=== PATIENT | female | born 2000 | race Two or more races ===

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

== ENCOUNTER 2019-05-17 15:50 | Outpatient (CLI) | payer SELFPAY ==
--- NOTE | 2019-05-18 07:31 | Ultrasound Report ---
Reason: POSITIVE TEST Procedure Date: 05/17/2019 Accession Number: [id number] / [id number] Procedure: US - OB First Trimester CPT Code: Final Report FULL RESULT: EXAM: FIRST TRIMESTER OBSTETRIC ULTRASOUND (Less than 11 weeks) EXAM DATE: 05/17/2019 04:23 PM. CLINICAL HISTORY: POSITIVE TEST. LMP: 03/24/2019 (unsure). COMPARISONS: None. TECHNIQUE: Transabdominal and transvaginal ultrasound examination with static image documentation. CLINICAL DATES: EGA 7 weeks 5 days with LAVELLE 12/29/2019 based on reported LMP (although unsure). ASSESSMENT: Gestational Sac: Single intrauterine. Mean gestational sac diameter: 28 mm = 7 weeks 6 days. Embryo: CRL (crown-rump length) 15 mm = 7 weeks 6 days. Cardiac activity: Average 170 beats per minute. Yolk sac: 5.9 mm. Amniotic fluid: Not accurately assessed at this gestational age. Early placenta: Not visible at this gestational age. Other: No perigestational fluid collection demonstrated. MATERNAL STRUCTURES: Uterus: Anteverted. Single intrauterine gestation as above.. Cervix: Closed. Right Ovary/Adnexa: The ovary measures 3.4 x 1.5 x 1.9 cm, volume 5 cc. Exophytic ovarian versus paraovarian cyst measuring 1.3 x 1.4 x 1.4 cm. No evidence of torsion.. Left Ovary/Adnexa: The ovary measures 3.9 x 2.5 x 4.2 cm, volume 21.5 cc. Corpus luteum cyst is present measuring 1.8 x 2.0 x 2.0 cm. No evidence of torsion. Free Fluid: None. Other: None. IMPRESSION: Single viable intrauterine at EGA 7 weeks 6 days with LAVELLE 12/28/2019 based on crown-rump length, which is concordant with clinical dates. RADIA
== END 2019-05-17 15:51 | disposition home or self-care (01) ==
LOC: DI 15:50
PROVIDERS: ATTEND Nurse Practitioner Obstetrics & Gynecology
DX: Z32.01 Encounter for pregnancy test, result positive (principal)
CPT/HCPCS: 76801; 76817

== ENCOUNTER 2019-05-28 08:00 | Outpatient (CLI) | payer SELFPAY ==
[2019-05-28 15:25] LABS: MUDS CUTOFF CONCENTRATIONS CUTOFF CONC BELOW:
[2019-05-28 15:46] LABS: AMPHETAMINE SCREEN,URINE NEGATIVE (NEGATIVE); BENZODIAZEPINES SCREEN, URINE NEGATIVE (NEGATIVE); COCAINE SCREEN URINE NEGATIVE (NEGATIVE); METHADONE SCREEN, URINE NEGATIVE (NEGATIVE); METHAMPHETAMINES SCREEN, URINE NEGATIVE (NEGATIVE); OPIATE SCREEN, URINE NEGATIVE (NEGATIVE); OXYCODONE SCREEN, URINE NEGATIVE (NEGATIVE); PROPOXYPHENE SCREEN, URINE NEGATIVE (NEGATIVE); TRICYCLIC ANTIDEPRESSANT,URINE NEGATIVE (NEGATIVE)
[2019-05-28 20:57] LABS: TRICHOMONAS VAGINALIS DNA NEGATIVE (NEGATIVE)
== END 2019-05-28 23:59 | disposition home or self-care (01) ==
LOC: LAB.R 08:00
PROVIDERS: ATTEND Nurse Practitioner Obstetrics & Gynecology
DX: Z36.89 Encounter for other specified antenatal screening (principal); Z11.3 Encounter for screening for infections with a predominantly sexual mode of transmission
CPT/HCPCS: 80306; 87491; 87591; 87661

== ENCOUNTER 2019-05-28 10:51 | Outpatient (CLI) | payer SELFPAY ==
[2019-05-28 11:16] LABS: BASOPHILS % (AUTO) 0.4 %; EOSINOPHILS # (AUTO) 0.2 10^3/uL (0.0-0.7); EOSINOPHILS % (AUTO) 2.3 %; HGB - HEMOGLOBIN 12.1 g/dL (12.0-16.0); LYMPHOCYTES % (AUTO) 25.6 %; MEAN CORPUSCULAR HEMOGLOBIN 28.6 pg (27.0-31.0); MEAN CORPUSCULAR HGB CONC 33.2 g/dL (32.0-36.0); MEAN CORPUSCULAR VOLUME 86.1 fL (81.0-99.0); MEAN PLATELET VOLUME 10.7 fL (7.9-10.8); MONOCYTES # (AUTO) 0.5 10^3/uL (0.0-1.0); NEUTROPHILS % (AUTO) 65.2 %; PLT - PLATELET COUNT 226 10^3/uL (130-450); RED BLOOD COUNT 4.23 10^6/uL (4.20-5.40); RED CELL DISTRIBUTION WIDTH 14.9 % (12.0-15.0); WHITE BLOOD COUNT 7.7 x10^3/uL (4.8-10.8)
[2019-05-29 12:17] LABS: HEPATITIS B SURFACE ANTIGEN NON-REACTIVE (NON-REACTIVE)
[2019-05-29 12:27] LABS: HEPATITIS C ANTIBODY NON-REACTIVE (NON-REACTIVE)
[2019-05-29 12:42] LABS: HIV AG/AB 4TH GEN NON-REACTIVE (NON-REACTIVE)
== END 2019-05-28 10:52 | disposition home or self-care (01) ==
LOC: LAB 10:51
PROVIDERS: ATTEND Nurse Practitioner Obstetrics & Gynecology
DX: Z36.89 Encounter for other specified antenatal screening (principal)
CPT/HCPCS: 36415; 81599; 85025; 86592; 86762; 86803; 86850; 86900; 86901; 87340; 87389

== ENCOUNTER 2019-07-29 11:56 | Outpatient (CLI) | payer MEDICAID ==
--- NOTE | 2019-07-30 14:54 | Ultrasound Report ---
Reason: SCREENING Procedure Date: 07/29/2019 Accession Number: [id number] / [id number] Procedure: US - OB Detailed Eval CPT Code: Final Report FULL RESULT: EXAM: COMPLETE OBSTETRICAL ULTRASOUND EXAM DATE: 07/29/2019 01:34 PM. CLINICAL HISTORY: anatomic survey. COMPARISON: 05/17/2019. TECHNIQUE: Real-time sonographic evaluation of the fetus performed by the rn patient care. Multiple provider relations representative static images were saved for review. Additional transvaginal imaging to more accurately evaluate cervical length/placental position/etc. DATING: Established EGA 18 weeks 1 day with LAVELLE 12/29/2019 based on physician stated. EGA 18 weeks 2 days with LAVELLE 12/28/2019 based on prior ultrasound . EGA 18 weeks 2 days with LAVELLE 12/28/2019 based on the current ultrasound. GENERAL EVALUATION Cody . Cardiac activity: 144 bpm. movement: Visualized. Presentation: Cephalic. Placenta: Anterior position. No evidence for previa. Umbilical cord: 3 vessel cord. Central placental cord origin. Amniotic fluid: 13.7 cm MVP 3.7 cm. BIOMETRY Bi-Parietal Diameter (BPD): 4.1 cm, 18 weeks 3 days Head Circumference (HC): 15.22 cm, 18 weeks 2 days Abdominal Circumference (AC): 12.53 cm, 18 weeks 1 day Femur Length (FL): 2.69 cm, 18 weeks 1 day Estimated Weight: 228 g, 47.6 percentile for 18 weeks 1 day. ANATOMY The intracranial structures, profile, face/nose/lips, spine, 4 chamber heart and outflow tracts, stomach, abdominal wall and cord insertion, diaphragm, kidneys, bladder, and extremities were visualized and demonstrate no abnormality. MATERNAL STRUCTURES Uterus: Unremarkable. Cervix: Long and closed. Transabdominal length 4.5 cm. Right ovary/adnexa: Unremarkable. Left ovary/adnexa: Unremarkable. Free fluid: None. IMPRESSION: 1. Cody live intrauterine with gestational age 18 weeks 1 day based on physician stated. 2. Estimated weight is within expected limits for assigned dating. 3. Normal anatomic survey. No anatomic abnormalities are detected at this time. RADIA
== END 2019-07-29 11:57 | disposition home or self-care (01) ==
LOC: DI 11:56
PROVIDERS: ATTEND Nurse Practitioner Obstetrics & Gynecology
DX: Z34.92 Encounter for supervision of normal pregnancy, unspecified, second trimester (principal); Z36.89 Encounter for other specified antenatal screening
CPT/HCPCS: 76811

== ENCOUNTER 2019-10-02 09:09 | Outpatient (CLI) | payer MEDICAID ==
[2019-10-02 10:41] LABS: HGB - HEMOGLOBIN 11.2 g/dL (12.0-16.0); MEAN CORPUSCULAR HEMOGLOBIN 29.2 pg (27.0-31.0); MEAN CORPUSCULAR HGB CONC 33.3 g/dL (32.0-36.0); MEAN CORPUSCULAR VOLUME 87.5 fL (81.0-99.0); MEAN PLATELET VOLUME 10.9 fL (7.9-10.8); RED BLOOD COUNT 3.84 10^6/uL (4.20-5.40); RED CELL DISTRIBUTION WIDTH 12.5 % (12.0-15.0); WHITE BLOOD COUNT 8.2 x10^3/uL (4.8-10.8)
== END 2019-10-02 09:10 | disposition home or self-care (01) ==
LOC: LAB 09:09
PROVIDERS: ATTEND Advanced Practice Midwife
DX: Z34.90 Encounter for supervision of normal pregnancy, unspecified, unspecified trimester (principal)
CPT/HCPCS: 36415; 82950; 84443; 85027

== ENCOUNTER 2019-12-05 07:00 | Outpatient (CLI) | payer MEDICAID ==
[2019-12-05 20:02] LABS: TRICHOMONAS VAGINALIS DNA NEGATIVE (NEGATIVE)
[2019-12-05 20:50] LABS: CANDIDA GROUP DNA POSITIVE (NEGATIVE); CANDIDA KRUSEI DNA NEGATIVE (NEGATIVE); TRICHOMONAS VAGINALIS DNA NEGATIVE (NEGATIVE)
== END 2019-12-05 23:59 | disposition home or self-care (01) ==
LOC: LAB.R 07:00
PROVIDERS: ATTEND Advanced Practice Midwife
DX: Z36.85 Encounter for antenatal screening for Streptococcus B (principal); Z34.90 Encounter for supervision of normal pregnancy, unspecified, unspecified trimester; Z11.3 Encounter for screening for infections with a predominantly sexual mode of transmission; O23.599 Infection of other part of genital tract in pregnancy, unspecified trimester
CPT/HCPCS: 87491; 87591; 87661; 87797; 87801

== ENCOUNTER 2019-12-28 14:24 | Inpatient (IN) | payer MEDICAID ==
[2019-12-28] MEDS ORDERED: METHYLERGONOVINE 0.2 MG/ML VIAL IM PRN (15:01)
[2019-12-28] MEDS ORDERED: fentaNYL 100 MCG/2 ML VIAL IVP PRN (15:01)
[2019-12-28] MEDS ORDERED: LIDOCAINE-MPF 1% 30 ML VIAL ID PRN ×2 (15:01→16:54)
[2019-12-28] MEDS ORDERED: SODIUM CHLORIDE FLUSH 0.9% 10 ML SYRINGE IVP PRN ×2 (15:01→16:54)
[2019-12-28] MEDS ORDERED: OXYTOCIN/SODIUM CHLORIDE 500 ML IV PRN ×3 (15:01→16:54)
[2019-12-28] MEDS ORDERED: miSOPROStoL 200 MCG TABLET BC PRN ×2 (15:01→16:54)
[2019-12-28] MEDS ORDERED: METOCLOPRAMIDE 10 MG/2 ML VIAL IVP PRN ×2 (15:01→21:47)
[2019-12-28] MEDS ORDERED: TRANEXAMIC ACID 1,000 MG in SODIUM CHLORIDE 0.9% 100ML 100 ML IV PRN ×2 (15:01→16:54)
[2019-12-28] MEDS ORDERED: ONDANSETRON 4 MG/2 ML VIAL IVP PRN ×2 (15:01→21:47)
[2019-12-28] MEDS ORDERED: OXYTOCIN 10 UNIT/ML VIAL IM PRN ×2 (15:01→16:54)
[2019-12-28] MEDS ORDERED: CARBOPROST TROMETHAMINE 250 MCG/ML AMP IM PRN ×2 (15:01→16:54)
[2019-12-28] MEDS ORDERED: NIFEdipine 10 MG CAPSULE PO PRN (15:09)
[2019-12-28] MEDS ORDERED: AMPICILLIN 2 GM in SODIUM CHLORIDE 0.9% MINIBAG 100 ML IV ONE (15:30)
[2019-12-28] MEDS: MAGNESIUM SULFATE 2 GRAM 2 GM/50 ML BAG IV SCH ×2 (15:32→15:47)
[2019-12-28 15:56] LABS: CREATININE,URINE 79.7 mg/dL; PROTEIN/CREATININE RATIO,URINE 0.3 (<=0.2)
[2019-12-28] MEDS: MAGNESIUM SULFATE IN WATER 20 GM/500 ML IV.SOLN IV SCH (15:56)
[2019-12-28 15:57] LABS: BASOPHILS % (AUTO) 0.4 %; EOSINOPHILS % (AUTO) 0.4 %; HGB - HEMOGLOBIN 11.7 g/dL (12.0-16.0); LYMPHOCYTES # (AUTO) 1.6 10^3/uL (1.5-3.5); LYMPHOCYTES % (AUTO) 27.7 %; MEAN CORPUSCULAR HEMOGLOBIN 25.4 pg (27.0-31.0); MEAN CORPUSCULAR HGB CONC 32.1 g/dL (32.0-36.0); MONOCYTES # (AUTO) 0.4 10^3/uL (0.0-1.0); MONOCYTES % (AUTO) 6.6 %; NEUTROPHILS # (AUTO) 3.6 10^3/uL (1.5-6.6); NEUTROPHILS % (AUTO) 63.3 %; PLT - PLATELET COUNT 144 10^3/uL (130-450); RED BLOOD COUNT 4.61 10^6/uL (4.20-5.40); RED CELL DISTRIBUTION WIDTH 18.4 % (12.0-15.0); WHITE BLOOD COUNT 5.6 x10^3/uL (4.8-10.8)
[2019-12-28] MEDS ORDERED: LACTATED RINGERS 1,000 ML IV SCH ×2 (16:00→17:00)
[2019-12-28 16:06] LABS: ALBUMIN 2.8 g/dL (3.2-5.5); ALBUMIN/GLOBULIN RATIO 0.8 (1.0-2.2); BILIRUBIN,TOTAL 0.6 mg/dL (0.2-1.0); CALCIUM 8.7 mg/dL (8.5-10.3); CREATININE 0.8 mg/dL (0.4-1.0); TOTAL PROTEIN 6.4 g/dL (6.7-8.2)
[2019-12-28] MEDS ORDERED: LABETALOL 20 MG/4 ML SYRINGE IVP PRN (16:54)
[2019-12-28] MEDS ORDERED: SODIUM CHLORIDE FLUSH 0.9% 10 ML SYRINGE IVP SCH ×2 (17:00)
[2019-12-28] MEDS ORDERED: TERBUTALINE 1 MG/ML VIAL SUBQ SCH (17:00)
[2019-12-28] MEDS ORDERED: MAGNESIUM SULFATE 2 GRAM 2 GM/50 ML BAG IV SCH (17:00)
--- NOTE | 2019-12-28 17:13 | HISTORY & PHYSICAL EXAMINATION ---
Admit History - : 1 Parity: 0 Care: positive: [facility] Complications This : positive: Gestational diabetes, Pre- eclampsia Smoking Status: Never smoker - Mother's Labs Mother's Blood Type: positive: O Mother's RH: positive: Positive GBS: positive: Group B Strep Positive Rubella Status: positive: Immune - Other Maternal History Other Maternal History: Patient is a 19-year-old G1, P0 at 39+6 weeks estimated gestational age who presented with painful contractions and found to have severe range blood pressures. Patient reports contractions started around 10 AM. They are increasing in frequency and intensity. No loss of fluid. No vaginal bleeding. Endorses movement. has been complicated by positive GBS status. At presentation, blood pressures were 179/119. In follow-up pressures, she again had systolic BP in the 160s and DBPS in 110s. She denies SWAIN/RUQ pain/vision change. She was given nifedipine 10 mg po x1 and blood pressure have been in normal to mild range. 05/17/2019 initial ultrasound @ 7.6wks c/w LMP dating with LAVELLE 12/29/2019. O pos/Rubella-immune Genetic testing: declines FAS: 18.1wks. Anterior Placenta. 3VC. SOURAV wnl. EFW 47.6%. Normal anatomic survey. Glucola :116 TDAP: 10/01/19 GBS- at 36.4wks- positive IPAP GC/CT- neg HSV: denies self and partner Breast pump Rx: 10/24/2019 MOD: . Baby GIRL. Spouse: Jose (just got 06/28/2019) pp contraception: desires IUD (undecided for Mirena vs Paragard) PAP: needs Meds/Allgy - Allergies Allergies/Adverse Reactions: Allergies Allergy/AdvReac Type Severity Reaction Status Date / Time No Known Drug Allergies Allergy Verified 12/28/19 15:49 Review of Systems - Other Findings Other Findings: As per HPI, otherwise remaining systems are negative. Physical - Abdominal Exam Vital Signs: Temp Pulse Resp BP Pulse Ox 99.0 F 79 20 149/110 H 99 12/28/19 16:07 12/28/19 14:50 12/28/19 14:50 12/28/19 14:50 12/28/19 14:50 Contraction Frequency (min/apart): Q4-5 min Contraction Intensity: positive: Moderate to strong - Monitoring Heart Rate Baseline: 145 mod jj 15x15 accels no decels Strip Review: positive: Category I - Presentation Presentation: positive: Vertex - Vaginal Exam Membranes: positive: Membranes intact Dilation (in cm): 4 Effacement (%): 100 Station: positive: -2 Cervical Position: positive: Posterior - Other Notes Labor Progress Note/Additional Text: Initial SVE was 2/C/-2/posterior Repeat exam approximately 2 hours later was 4/C/-2 station/posterior/soft Confirmed vertex by bedside us Plan for Labor - Plan For Labor Plan for Labor: LABOR: Tocometry showed intermittent contractions since starting magnesium but cervical change has been appropriate Patient was counselled regarding possible need for augmentation with misoprostol vs pitocin -Written informed consent was obtained -Expectant management with augmentation as indicated Pre-eclampsia with severe features: -BP have been in normal to mild range since starting magnesium and nifedipine -PIH labs wnl but platelets are lower than baseline at 144 Repeat labs in 6 hours -P:C consistent with PE -Has received magnesium 4g bolus, now receiving 2g/hr infusion -Low threshold to start labetolol po should BPs start to trend up -IV labetalol 20 mg in setting of severe range pressures. -NO METHERGINE FWB: vertex, appropriate growth, Cat I tracing, GBS positive -CEFM -Ampicillin per GBS ppx protocol PAIN: -At present, desires unmedicated delivery. -Fentanyl 50 mcg Q 1 hours prn pain, not to be given after 7 cm. Max cumulative dose 200 mcg -Epidural as desired. Reviewed limitations in setting of thrombocytopenia. Will recheck plts in 6 hours In patient care
[2019-12-28] MEDS: ACETAMINOPHEN 325 MG TABLET PO SCH (17:43)
--- NOTE | 2019-12-28 18:21 | PROVIDER PROGRESS NOTE ---
Subjective - Prog Note Date Prog Note Date: 12/28/19 Prog Note Time: 18:20 - Subjective Subjective: Blood pressures are trending up. Ordering labetalol 100 mg po bid EFM 140 mod jj 15x15 accels no decels TOCO: Q4-5 min Anticipate FU labs at 21:00 Objective - Vital Signs/Intake & Output Vital Signs: Vital Signs x48h Temp Pulse Resp BP Pulse Ox 12/28/19 16:07 99.0 F 12/28/19 14:50 79 20 149/110 H 99 12/28/19 14:46 71 20 160/109 H 100 12/28/19 14:40 70 20 152/105 H 100 12/28/19 14:35 99.9 F H 70 20 170/119 H 100 Intake & Output: Intake & Output 12/25/19 12/26/19 12/27/19 12/28/19 23:59 23:59 23:59 23:59 Intake Total 187.5 Output Total 550 Balance -362.5 - Lab Results Fish Bones: 12/28/19 15:44 12/28/19 15:44 Other Labs: Lab Results x24hrs 12/28/19 12/28/19 12/28/19 Range/Units 15:44 15:44 15:44 WBC 5.6 (4.8-10.8) x10^3/uL RBC 4.61 (4.20-5.40) 10^6/uL Hgb 11.7 L (12.0-16.0) g/dL Hct 36.4 L (37.0-47.0) % MCV 79.0 L (81.0-99.0) fL MCH 25.4 L (27.0-31.0) pg MCHC 32.1 (32.0-36.0) g/dL RDW 18.4 H (12.0-15.0) % Plt Count 144 (130-450) 10^3/uL Neut # (Auto) 3.6 (1.5-6.6) 10^3/uL Lymph # (Auto) 1.6 (1.5-3.5) 10^3/uL [place] # (Auto) 0.4 (0.0-1.0) 10^3/uL Eos # (Auto) 0.0 (0.0-0.7) 10^3/uL Baso # (Auto) 0.0 (0.0-0.1) 10^3/uL Absolute Nucleated RBC 0.04 x10^3/uL Nucleated RBC % 0.7 /100WBC Sodium 136 (135-145) mmol/L Potassium 3.9 (3.5-5.0) mmol/L Chloride 107 (101-111) mmol/L Carbon Dioxide 19 L (21-32) mmol/L Anion Gap 10.0 (6-13) BUN 13 (6-20) mg/dL Creatinine 0.8 (0.4-1.0) mg/dL Estimated GFR (MDRD) 91 (>89) Glucose 88 (70-100) mg/dL Calcium 8.7 (8.5-10.3) mg/dL Total Bilirubin 0.6 (0.2-1.0) mg/dL AST 34 (10-42) IU/L ALT 27 (10-60) IU/L Alkaline Phosphatase 224 H (42-121) IU/L Total Protein 6.4 L (6.7-8.2) g/dL Albumin 2.8 L (3.2-5.5) g/dL Globulin 3.6 (2.1-4.2) g/dL Albumin/Globulin Ratio 0.8 L (1.0-2.2) Urine Creatinine mg/dL Ur Total Protein Timed mg/dL Protein/Creatinin Ratio (<=0.2) Blood Type O POSITIVE Antibody Screen NEGATIVE 12/28/19 Range/Units 15:15 WBC (4.8-10.8) x10^3/uL RBC (4.20-5.40) 10^6/uL Hgb (12.0-16.0) g/dL Hct (37.0-47.0) % MCV (81.0-99.0) fL MCH (27.0-31.0) pg MCHC (32.0-36.0) g/dL RDW (12.0-15.0) % Plt Count (130-450) 10^3/uL Neut # (Auto) (1.5-6.6) 10^3/uL Lymph # (Auto) (1.5-3.5) 10^3/uL [place] # (Auto) (0.0-1.0) 10^3/uL Eos # (Auto) (0.0-0.7) 10^3/uL Baso # (Auto) (0.0-0.1) 10^3/uL Absolute Nucleated RBC x10^3/uL Nucleated RBC % /100WBC Sodium (135-145) mmol/L Potassium (3.5-5.0) mmol/L Chloride (101-111) mmol/L Carbon Dioxide (21-32) mmol/L Anion Gap (6-13) BUN (6-20) mg/dL Creatinine (0.4-1.0) mg/dL Estimated GFR (MDRD) (>89) Glucose (70-100) mg/dL Calcium (8.5-10.3) mg/dL Total Bilirubin (0.2-1.0) mg/dL AST (10-42) IU/L ALT (10-60) IU/L Alkaline Phosphatase (42-121) IU/L Total Protein (6.7-8.2) g/dL Albumin (3.2-5.5) g/dL Globulin (2.1-4.2) g/dL Albumin/Globulin Ratio (1.0-2.2) Urine Creatinine 79.7 mg/dL Ur Total Protein Timed 21 mg/dL Protein/Creatinin Ratio 0.3 H (<=0.2) Blood Type Antibody Screen
--- NOTE | 2019-12-28 18:55 | PROVIDER PROGRESS NOTE ---
Subjective - Prog Note Date Prog Note Date: 12/28/19 Prog Note Time: 18:54 - Subjective Subjective: No change in SVE since time of prior exam Giving single dose misoprostol 50 mcg MC x1 now Cat I tracing Starting labetalol 100 mg po bid Repeat SVE in 4-5 hours after miso admin Objective - Vital Signs/Intake & Output Vital Signs: Vital Signs x48h Temp Pulse Resp BP Pulse Ox 12/28/19 16:07 99.0 F 12/28/19 14:50 79 20 149/110 H 99 12/28/19 14:46 71 20 160/109 H 100 12/28/19 14:40 70 20 152/105 H 100 12/28/19 14:35 99.9 F H 70 20 170/119 H 100 Intake & Output: Intake & Output 12/25/19 12/26/19 12/27/19 12/28/19 23:59 23:59 23:59 23:59 Intake Total 187.5 Output Total 550 Balance -362.5 - Lab Results Fish Bones: 12/28/19 15:44 12/28/19 15:44 Other Labs: Lab Results x24hrs 12/28/19 12/28/19 12/28/19 Range/Units 15:44 15:44 15:44 WBC 5.6 (4.8-10.8) x10^3/uL RBC 4.61 (4.20-5.40) 10^6/uL Hgb 11.7 L (12.0-16.0) g/dL Hct 36.4 L (37.0-47.0) % MCV 79.0 L (81.0-99.0) fL MCH 25.4 L (27.0-31.0) pg MCHC 32.1 (32.0-36.0) g/dL RDW 18.4 H (12.0-15.0) % Plt Count 144 (130-450) 10^3/uL Neut # (Auto) 3.6 (1.5-6.6) 10^3/uL Lymph # (Auto) 1.6 (1.5-3.5) 10^3/uL [place] # (Auto) 0.4 (0.0-1.0) 10^3/uL Eos # (Auto) 0.0 (0.0-0.7) 10^3/uL Baso # (Auto) 0.0 (0.0-0.1) 10^3/uL Absolute Nucleated RBC 0.04 x10^3/uL Nucleated RBC % 0.7 /100WBC Sodium 136 (135-145) mmol/L Potassium 3.9 (3.5-5.0) mmol/L Chloride 107 (101-111) mmol/L Carbon Dioxide 19 L (21-32) mmol/L Anion Gap 10.0 (6-13) BUN 13 (6-20) mg/dL Creatinine 0.8 (0.4-1.0) mg/dL Estimated GFR (MDRD) 91 (>89) Glucose 88 (70-100) mg/dL Calcium 8.7 (8.5-10.3) mg/dL Total Bilirubin 0.6 (0.2-1.0) mg/dL AST 34 (10-42) IU/L ALT 27 (10-60) IU/L Alkaline Phosphatase 224 H (42-121) IU/L Total Protein 6.4 L (6.7-8.2) g/dL Albumin 2.8 L (3.2-5.5) g/dL Globulin 3.6 (2.1-4.2) g/dL Albumin/Globulin Ratio 0.8 L (1.0-2.2) Urine Creatinine mg/dL Ur Total Protein Timed mg/dL Protein/Creatinin Ratio (<=0.2) Blood Type O POSITIVE Antibody Screen NEGATIVE 12/28/19 Range/Units 15:15 WBC (4.8-10.8) x10^3/uL RBC (4.20-5.40) 10^6/uL Hgb (12.0-16.0) g/dL Hct (37.0-47.0) % MCV (81.0-99.0) fL MCH (27.0-31.0) pg MCHC (32.0-36.0) g/dL RDW (12.0-15.0) % Plt Count (130-450) 10^3/uL Neut # (Auto) (1.5-6.6) 10^3/uL Lymph # (Auto) (1.5-3.5) 10^3/uL [place] # (Auto) (0.0-1.0) 10^3/uL Eos # (Auto) (0.0-0.7) 10^3/uL Baso # (Auto) (0.0-0.1) 10^3/uL Absolute Nucleated RBC x10^3/uL Nucleated RBC % /100WBC Sodium (135-145) mmol/L Potassium (3.5-5.0) mmol/L Chloride (101-111) mmol/L Carbon Dioxide (21-32) mmol/L Anion Gap (6-13) BUN (6-20) mg/dL Creatinine (0.4-1.0) mg/dL Estimated GFR (MDRD) (>89) Glucose (70-100) mg/dL Calcium (8.5-10.3) mg/dL Total Bilirubin (0.2-1.0) mg/dL AST (10-42) IU/L ALT (10-60) IU/L Alkaline Phosphatase (42-121) IU/L Total Protein (6.7-8.2) g/dL Albumin (3.2-5.5) g/dL Globulin (2.1-4.2) g/dL Albumin/Globulin Ratio (1.0-2.2) Urine Creatinine 79.7 mg/dL Ur Total Protein Timed 21 mg/dL Protein/Creatinin Ratio 0.3 H (<=0.2) Blood Type Antibody Screen
[2019-12-28] MEDS ORDERED: miSOPROStoL 100 MCG TABLET BC SCH (19:00)
[2019-12-28] MEDS ORDERED: AMPICILLIN 1 GM in SODIUM CHLORIDE 0.9% MINIBAG 100 ML IV SCH (19:30)
[2019-12-28] MEDS: LABETALOL 100 MG TABLET PO SCH ×2 (20:34→23:34)
[2019-12-28 21:09] LABS: BASOPHILS % (AUTO) 0.3 %; EOSINOPHILS % (AUTO) 0.1 %; LYMPHOCYTES % (AUTO) 22.5 %; MEAN CORPUSCULAR HEMOGLOBIN 24.9 pg (27.0-31.0); MEAN CORPUSCULAR HGB CONC 31.3 g/dL (32.0-36.0); MEAN CORPUSCULAR VOLUME 79.6 fL (81.0-99.0); MEAN PLATELET VOLUME 12.7 fL (7.9-10.8); MONOCYTES # (AUTO) 0.3 10^3/uL (0.0-1.0); NEUTROPHILS # (AUTO) 6.4 10^3/uL (1.5-6.6); NEUTROPHILS % (AUTO) 72.7 %; PLT - PLATELET COUNT 163 10^3/uL (130-450); RED BLOOD COUNT 4.81 10^6/uL (4.20-5.40); RED CELL DISTRIBUTION WIDTH 18.7 % (12.0-15.0); WHITE BLOOD COUNT 8.7 x10^3/uL (4.8-10.8)
[2019-12-28] MEDS ORDERED: ROPIVACAINE 0.2% 200 MG/100 ML BAG EP ONE (21:17)
[2019-12-28 21:18] LABS: ALBUMIN 3.1 g/dL (3.2-5.5); ALBUMIN/GLOBULIN RATIO 0.8 (1.0-2.2); BILIRUBIN,TOTAL 0.6 mg/dL (0.2-1.0); CALCIUM 7.9 mg/dL (8.5-10.3); CREATININE 0.8 mg/dL (0.4-1.0); TOTAL PROTEIN 6.8 g/dL (6.7-8.2)
[2019-12-28] MEDS ORDERED: ROPIVACAINE 0.2% 200 MG/100 ML BAG EP PRN (21:47)
[2019-12-28] MEDS ORDERED: NALBUPHINE 10 MG/ML AMP IVP PRN (21:47)
[2019-12-28] MEDS ORDERED: NALOXONE 0.4 MG/ML VIAL IVP PRN (21:47)
[2019-12-28] MEDS ORDERED: ePHEDrine 50 MG/ML VIAL IVP PRN (21:47)
[2019-12-28] MEDS ORDERED: diphenhydrAMINE INJ 50 MG/ML VIAL IVP PRN (21:47)
--- NOTE | 2019-12-28 21:50 | ANESTHESIA ---
Pre-Anesthesia VS, & Labs - Diagnosis active labor - Procedure labor epidural Vital Signs: Temp Pulse Resp BP Pulse Ox 37.2 C 79 20 149/110 H 99 12/28/19 16:07 12/28/19 14:50 12/28/19 14:50 12/28/19 14:50 12/28/19 14:50 Height: 5 ft 2 in Weight (kg): 74.389 kg Body Mass Index: 29.9 BMI Classification: Overweight - NPO >8 hours - Is Patient ?: Yes - Lab Results Current Lab Results: Laboratory Tests 12/28/19 20:58: Sodium 133 L, Potassium 3.9, Chloride 102, Carbon Dioxide 18 L, Anion Gap 13.0, BUN 11, Creatinine 0.8, Estimated GFR (MDRD) 91, Glucose 93, Calcium 7.9 L, Total Bilirubin 0.6, AST 36, ALT 28, Alkaline Phosphatase 242 H, Total Protein 6.8, Albumin 3.1 L, Globulin 3.7, Albumin/Globulin Ratio 0.8 L 12/28/19 20:58: WBC 8.7, RBC 4.81, Hgb 12.0, Hct 38.3, MCV 79.6 L, MCH 24.9 L, MCHC 31.3 L, RDW 18.7 H, Plt Count 163, MPV 12.7 H, Neut # (Auto) 6.4, Lymph # (Auto) 2.0, [place] # (Auto) 0.3, Eos # (Auto) 0.0, Baso # (Auto) 0.0, Absolute Nucleated RBC 0.04, Nucleated RBC % 0.5 12/28/19 15:44: Sodium 136, Potassium 3.9, Chloride 107, Carbon Dioxide 19 L, Anion Gap 10.0, BUN 13, Creatinine 0.8, Estimated GFR (MDRD) 91, Glucose 88, Calcium 8.7, Total Bilirubin 0.6, AST 34, ALT 27, Alkaline Phosphatase 224 H, Total Protein 6.4 L, Albumin 2.8 L, Globulin 3.6, Albumin/Globulin Ratio 0.8 L 12/28/19 15:44: WBC 5.6, RBC 4.61, Hgb 11.7 L, Hct 36.4 L, MCV 79.0 L, MCH 25.4 L, MCHC 32.1, RDW 18.4 H, Plt Count 144, Neut # (Auto) 3.6, Lymph # (Auto) 1.6, [place] # (Auto) 0.4, Eos # (Auto) 0.0, Baso # (Auto) 0.0, Absolute Nucleated RBC 0.04, Nucleated RBC % 0.7 12/28/19 15:44: Blood Type O POSITIVE, Antibody Screen NEGATIVE Lab results reviewed: Yes Fish Bones: 12/28/19 20:58 12/28/19 20:58 Home Medications and Allergies Active Medications Acetaminophen (Tylenol) 650 mg PO Q6H VALERI Last Admin: 12/28/19 17:43 Dose: Not Given Documented by: Carboprost Tromethamine (Hemabate) 250 mcg IM Q15M PRN PRN Reason: Step 4: Hemorrhage protocol Stop: 01/02/20 15:02 Carboprost Tromethamine (Hemabate) 250 mcg IM Q15M PRN PRN Reason: Step 4: Hemorrhage protocol Stop: 01/02/20 16:54 Fentanyl (Fentanyl) 50 mcg IVP Q1H PRN PRN Reason: PAIN Last Admin: 12/28/19 20:50 Dose: 50 mcg Documented by: Lactated Ringer's (Lr) 1,000 mls @ 50 mls/hr IV .Q20H VALERI Last Admin: 12/28/19 15:32 Dose: 50 mls/hr Documented by: Oxytocin/Sodium Chloride (Pitocin/Sodium Chloride) 500 mls @ 999 mls/hr IV PRN PRN; Protocol PRN Reason: POST- HEMORR PREVENTION Stop: 01/02/20 15:02 Tranexamic Acid 1,000 mg/ (Sodium Chloride) 110 mls @ 660 mls/hr IV .ONCE PRN PRN Reason: EBL >1200mL and within 3hr Stop: 01/02/20 15:02 Ampicillin Sodium 1 gm/ Sodium (Chloride) 100 mls @ 200 mls/hr IV Q4H [facility] Last Admin: 12/28/19 20:06 Dose: 200 mls/hr Documented by: Oxytocin/Sodium Chloride (Pitocin/Sodium Chloride) 500 mls @ 999 mls/hr IV PRN PRN; Protocol PRN Reason: POST- HEMORR PREVENTION Magnesium Sulfate (Magnesium Sulf 20 G/500 Ml Bag) 20 gm in 500 mls @ 50 mls/hr IV .Q10H VALERI Last Admin: 12/28/19 15:56 Dose: 2 gm/hr, 50 mls/hr Documented by: Lactated Ringer's (Lr) 1,000 mls @ 150 mls/hr IV .Q6H40M [facility] Oxytocin/Sodium Chloride (Pitocin/Sodium Chloride) 500 mls @ 999 mls/hr IV PRN PRN; Protocol PRN Reason: POST- HEMORR PREVENTION Stop: 01/02/20 16:54 Tranexamic Acid 1,000 mg/ (Sodium Chloride) 110 mls @ 660 mls/hr IV .ONCE PRN PRN Reason: EBL >1200mL and within 3hr Stop: 01/02/20 16:54 Labetalol HCl (Trandate Syringe) 20 mg IVP Q20M PRN PRN Reason: SBP >160 or DBP >110 Labetalol HCl (Trandate) 100 mg PO BID [facility] Last Admin: 12/28/19 20:34 Dose: 100 mg Documented by: Lidocaine HCl (Xylocaine-Mpf 1% Vial) 30 ml ID .ONCE PRN PRN Reason: PERINEAL REPAIR Stop: 01/02/20 15:02 Lidocaine HCl (Xylocaine-Mpf 1% Vial) 30 ml ID .ONCE PRN PRN Reason: PERINEAL REPAIR Stop: 01/02/20 16:54 Methylergonovine Maleate (Methergine Inj) 0.2 mg IM .ONCE PRN PRN Reason: Step 2: Hemorrhage protocol Stop: 01/02/20 15:02 Metoclopramide HCl (Reglan Inj) 10 mg IVP Q6H PRN PRN Reason: Nausea / Vomiting Misoprostol (Cytotec) 800 mcg BC .ONCE PRN PRN Reason: Step 3: Hemorrhage protocol Stop: 01/02/20 15:02 Misoprostol (Cytotec) 800 mcg BC .ONCE PRN PRN Reason: Step 3: Hemorrhage protocol Stop: 01/02/20 16:54 Misoprostol (Cytotec) 50 mcg BC ONCE VALERI Stop: 12/29/19 18:59 Last Admin: 12/28/19 19:03 Dose: 50 mcg Documented by: Nifedipine (Procardia) 10 mg PO ONCE PRN PRN Reason: Hypertensive Emergency Stop: 12/29/19 15:08 Last Admin: 12/28/19 15:27 Dose: 10 mg Documented by: Ondansetron HCl (Zofran Inj) 4 mg IVP Q4H PRN PRN Reason: Nausea / Vomiting Last Admin: 12/28/19 20:06 Dose: 4 mg Documented by: Oxytocin (Pitocin) 10 unit IM .ONCE PRN PRN Reason: Step one: If no IV access Stop: 01/02/20 15:02 Oxytocin (Pitocin) 10 unit IM .ONCE PRN PRN Reason: Step one: If no IV access Stop: 01/02/20 16:54 Sodium Chloride (Normal Saline Flush 0.9%) 10 ml IVP PRN PRN PRN Reason: NEEDED PER PROVIDER ORDERS Sodium Chloride (Normal Saline Flush 0.9%) 10 ml IVP 0100,0900,1700 VALERI Sodium Chloride (Normal Saline Flush 0.9%) 10 ml IVP PRN PRN PRN Reason: NEEDED PER PROVIDER ORDERS Sodium Chloride (Normal Saline Flush 0.9%) 10 ml IVP 0100,0900,1700 VALERI Last Admin: 12/28/19 20:56 Dose: 10 ml Documented by: Terbutaline Sulfate (Terbutaline) 0.25 mg SUBQ ONCE VALERI Stop: 12/29/19 16:59 Allergies/Adverse Reactions: Allergies Allergy/AdvReac Type Severity Reaction Status Date / Time No Known Drug Allergies Allergy Verified 12/28/19 15:49 Anes History & Medical History - Anesthetic History Anesthesia Complications: reports: No previous complications - Medical History Smoking Status: Never smoker - Obstetrical History : 1 Parity: 0 Complications: positive: Gestational diabetes, Pre-eclampsia Exam General: Alert Dental: WNL Mouth Opening: Greater than 4 Fingerbreadths Neck Mobility: Normal Mallampati classification: II Thyromental Distance: greater than 6 cm Respiratory: Normal breath sounds Cardiovascular: Regular rate Plan Anesthesia Type: Epidural Consent for Procedure(s) Verified and Reviewed: Yes Code Status: Attempt Resuscitation ASA classification: 2-Mild systemic disease Is this case an emergency?: No
[2019-12-28] MEDS ORDERED: ONDANSETRON ODT 4 MG TABLET TL PRN (23:32)
[2019-12-28] MEDS ORDERED: oxyCODONE 5 MG TABLET PO PRN (23:34)
--- NOTE | 2019-12-28 23:48 | DELIVERY NOTE ---
Delivery Note - Labor Labor: positive: Spontaneous, Other (Misoprostol given after slowing of labor course.) - Delivery Method Delivery Method: positive: Spontaneous vaginal delivery - Cervical Ripening Method Cervical Ripening Method: positive: Misoprostil - Presentation Presentation: positive: Vertex - Nuchal Cord Nuchal Cord: positive: None - Anesthetic Anesthetic Type: - Amniotic Fluid Description Amniotic Fluid Description: positive: Clear - Vacuum Use Indication for Vacuum Use: positive: Suspicion of immediate or potential compromise Type of Vacuum Cup: positive: Cup: Rigid Vacuum Extraction: positive: Successful Number of pop-offs: 0 - Episiotomy Type Episiotomy Type: positive: None - Laceration Laceration: positive: 1st degree, Labial, Sulcus - Suture Suture Type: positive: Vicryl Suture Size: positive: 3-0 - Delivery Outcome Delivery Outcome: positive: Livebirth - : positive: Placed in direct skin contact with mother, Suctioned, Bulb syringe, Stimulated, Warmed, [place] used, Warmer used sex: positive: Female - Cord Cord: positive: 3 vessels - Placenta Placenta: positive: Intact, Expressed - Estimated Blood Loss Estimated Blood Loss (in cc): 200 - Post Delivery Events Post Delivery Events: positive: No post delivery events, Shoulder dystocia (One minute in duration. Relieved with delivery of posterior arm.) - Delivery Comments (Free Text/Narrative) Delivery Comments (Free Text/Narrative): STAGE I: Patient is a 19-year-old G1, P0 admitted at 39 weeks +6 days estimated gestational age in early labor. Patient presented with contractions. Initial SVE was 2/complete/-2 station. Upon admission she was noted to have several blood pressures in severe range. Urine protein creatinine ratio was 0.3, consistent with preeclampsia. She was admitted for labor and management of preeclampsia with severe features. She was started on magnesium with a 4 g IV bolus followed with a 2 g/h infusion.Initial severe range blood pressures were managed with oral nifedipine 10 mg x 1. Later on in the labor course she was started on labetalol 100 mg p.o. twice daily.Overall PIH labs were within normal limits and patient denied PIH symptoms.She was managed expectantly until her labor course stalled out and she was given a single dose of misoprostol 50 mcg x 1.She continued to contract spontaneously and cervical dilation advanced.She underwent spontaneous rupture of membranes notable for passage of clear fluid.Epidural for pain management.She was GBS positive and received adequate treatment with ampicillin for GBS prophylaxis.She was noted to be at compete cervical dialtion at 22:05. Cat I tracing throughout Stage I labor. STAGE II: Patient pushed well for 30 minutes to deliver a viable female infant with Apgars of 7/9. Contractions were spaced widely and second stage pitocin was given, reaching a max dose of 3 mU/min. tracing showed recurrent deep decelerations to the 50s in the setting of slow descent. Patient was offered a vacuum extraction and she declined. As pushing continued, decelerations became more prolonged and patient was again offered vacuum extraction. At this time, she agreed. Vacuum was placed at 22:48. Head delivered at 22:50 and vacuum was removed. head was extracted with one puller through one contraction, no pop offs. Head was delivered and shoulder dystocia lasting one minute in total was relieved with delivery of the posterior arm. was delivered to maternal chest and was vigorous at delivery. Cord was clamped x2 and cut after cord pulsations had ceased. Pediatrics was present shortly after delivery and assessed infant. Cord gases had been collected but were not sent given vigorousness of infant. STAGE III: Placenta delivered with expression at 22:57. It was examined and found to be intact. Perineum was examined and had two 1st degree lacerations, one in the right labia and one in the left ML sulcus. Bother were repaired using 3-0 Vicryl in the usual sterile fashion. Bleeding after delivery was brisk. Uterine tone was achieved with bimanual massage, pitocin bolus, and misoprostol 600 mcg BC x1. Total EBL was 200. Procedure was well tolerated.
[2019-12-29] MEDS: ACETAMINOPHEN 325 MG TABLET PO SCH (00:39)
[2019-12-29] MEDS: MAGNESIUM SULFATE IN WATER 20 GM/500 ML IV.SOLN IV SCH ×2 (01:03→12:21)
[2019-12-29] MEDS: HYDROCORTISONE 1% CREAM 28 GM TUBE PR PRN (04:54)
[2019-12-29] MEDS: LACTATED RINGERS 1,000 ML IV SCH ×2 (04:54→14:16)
[2019-12-29] MEDS: ACETAMINOPHEN 500 MG TABLET PO SCH ×2 (08:49→17:43)
[2019-12-29] MEDS: LABETALOL 100 MG TABLET PO SCH ×2 (08:49→21:27)
[2019-12-29] MEDS: DOCUSATE SODIUM 100 MG CAPSULE PO PRN ×2 (08:49→21:03)
--- NOTE | 2019-12-29 09:57 | PROVIDER PROGRESS NOTE ---
Subjective - Prog Note Date Prog Note Date: 12/29/19 Prog Note Time: 09:55 - Subjective Subjective: PPD#1 s/p with Pre-E: Has not yet been out of bed due to magnesium infusion. BPs in mild range on labetalol 100 mg po bid Blurred vision and weakness on magnesium 2mg/hr infusion Bf going well. Cano in place with ample output' Pain well managed Lochia appropriate Objective - Vital Signs/Intake & Output Reviewed Vital Signs: Yes Vital Signs: Vital Signs x48h Temp Pulse Resp BP BP Pulse Ox 12/29/19 08:30 98.1 F 83 16 138/96 H 100 12/29/19 06:30 79 16 126/78 98 12/29/19 06:00 75 16 131/76 H 97 12/29/19 05:30 16 138/83 H 98 12/29/19 05:05 98.9 F 83 18 143/94 H 100 12/29/19 04:00 88 18 130/84 H 98 Intake & Output: Intake & Output 12/26/19 12/27/19 12/28/19 12/29/19 23:59 23:59 23:59 23:59 Intake Total 687.5 1705.833 Output Total 1200 1100 Balance -512.5 605.833 - Objective General Appearance: positive: No acute distress Respiratory: positive: No respiratory distress Cardiovascular: positive: Other (RR) Abdomen: positive: Other (S&NT/ND. FF below umbi. Question of TTP in RUQ) Skin: positive: Color nml, Warm, Dry Extremities: positive: Non-tender, No pedal edema Neurologic/Psychiatric: positive: Oriented x3, Other (No clonus on BLE) - Lab Results Fish Bones: 12/28/19 20:58 12/28/19 20:58 Other Labs: Lab Results x24hrs 12/28/19 12/28/19 12/28/19 Range/Units 20:58 20:58 15:44 WBC 8.7 (4.8-10.8) x10^3/uL RBC 4.81 (4.20-5.40) 10^6/uL Hgb 12.0 (12.0-16.0) g/dL Hct 38.3 (37.0-47.0) % MCV 79.6 L (81.0-99.0) fL MCH 24.9 L (27.0-31.0) pg MCHC 31.3 L (32.0-36.0) g/dL RDW 18.7 H (12.0-15.0) % Plt Count 163 (130-450) 10^3/uL MPV 12.7 H (7.9-10.8) fL Neut # (Auto) 6.4 (1.5-6.6) 10^3/uL Lymph # (Auto) 2.0 (1.5-3.5) 10^3/uL [place] # (Auto) 0.3 (0.0-1.0) 10^3/uL Eos # (Auto) 0.0 (0.0-0.7) 10^3/uL Baso # (Auto) 0.0 (0.0-0.1) 10^3/uL Absolute Nucleated RBC 0.04 x10^3/uL Nucleated RBC % 0.5 /100WBC Sodium 133 L 136 (135-145) mmol/L Potassium 3.9 3.9 (3.5-5.0) mmol/L Chloride 102 107 (101-111) mmol/L Carbon Dioxide 18 L 19 L (21-32) mmol/L Anion Gap 13.0 10.0 (6-13) BUN 11 13 (6-20) mg/dL Creatinine 0.8 0.8 (0.4-1.0) mg/dL Estimated GFR (MDRD) 91 91 (>89) Glucose 93 88 (70-100) mg/dL Calcium 7.9 L 8.7 (8.5-10.3) mg/dL Total Bilirubin 0.6 0.6 (0.2-1.0) mg/dL AST 36 34 (10-42) IU/L ALT 28 27 (10-60) IU/L Alkaline Phosphatase 242 H 224 H (42-121) IU/L Total Protein 6.8 6.4 L (6.7-8.2) g/dL Albumin 3.1 L 2.8 L (3.2-5.5) g/dL Globulin 3.7 3.6 (2.1-4.2) g/dL Albumin/Globulin Ratio 0.8 L 0.8 L (1.0-2.2) Urine Creatinine mg/dL Ur Total Protein Timed mg/dL Protein/Creatinin Ratio (<=0.2) Blood Type Antibody Screen 12/28/19 12/28/19 12/28/19 Range/Units 15:44 15:44 15:15 WBC 5.6 (4.8-10.8) x10^3/uL RBC 4.61 (4.20-5.40) 10^6/uL Hgb 11.7 L (12.0-16.0) g/dL Hct 36.4 L (37.0-47.0) % MCV 79.0 L (81.0-99.0) fL MCH 25.4 L (27.0-31.0) pg MCHC 32.1 (32.0-36.0) g/dL RDW 18.4 H (12.0-15.0) % Plt Count 144 (130-450) 10^3/uL MPV (7.9-10.8) fL Neut # (Auto) 3.6 (1.5-6.6) 10^3/uL Lymph # (Auto) 1.6 (1.5-3.5) 10^3/uL [place] # (Auto) 0.4 (0.0-1.0) 10^3/uL Eos # (Auto) 0.0 (0.0-0.7) 10^3/uL Baso # (Auto) 0.0 (0.0-0.1) 10^3/uL Absolute Nucleated RBC 0.04 x10^3/uL Nucleated RBC % 0.7 /100WBC Sodium (135-145) mmol/L Potassium (3.5-5.0) mmol/L Chloride (101-111) mmol/L Carbon Dioxide (21-32) mmol/L Anion Gap (6-13) BUN (6-20) mg/dL Creatinine (0.4-1.0) mg/dL Estimated GFR (MDRD) (>89) Glucose (70-100) mg/dL Calcium (8.5-10.3) mg/dL Total Bilirubin (0.2-1.0) mg/dL AST (10-42) IU/L ALT (10-60) IU/L Alkaline Phosphatase (42-121) IU/L Total Protein (6.7-8.2) g/dL Albumin (3.2-5.5) g/dL Globulin (2.1-4.2) g/dL Albumin/Globulin Ratio (1.0-2.2) Urine Creatinine 79.7 mg/dL Ur Total Protein Timed 21 mg/dL Protein/Creatinin Ratio 0.3 H (<=0.2) Blood Type O POSITIVE Antibody Screen NEGATIVE Assessment/Plan - Problem List (1) Preeclampsia Impression: PPD#1 -On magnesium 2g/hr infusion. -Reducing to 1g/hr given symptoms -Cano remains in place -Will cont magnesium until patient wakes in am given late night delivery - Sending [facility] labs this am -Cont labetalol 100 mg po bid (2) Vaginal delivery Impression: PPD#1: BF going well Not yet ambulating due to Mag infusion Place SCDs while in bed Lochia appropriate Anticipate in-patient stay for add'l 48 hours
[2019-12-29 10:03] LABS: BASOPHILS % (AUTO) 0.3 %; HGB - HEMOGLOBIN 10.7 g/dL (12.0-16.0); LYMPHOCYTES # (AUTO) 1.7 10^3/uL (1.5-3.5); LYMPHOCYTES % (AUTO) 15.2 %; MEAN CORPUSCULAR HGB CONC 32.8 g/dL (32.0-36.0); MEAN CORPUSCULAR VOLUME 79.3 fL (81.0-99.0); MEAN PLATELET VOLUME 11.8 fL (7.9-10.8); MONOCYTES # (AUTO) 0.4 10^3/uL (0.0-1.0); MONOCYTES % (AUTO) 3.5 %; NEUTROPHILS # (AUTO) 9.1 10^3/uL (1.5-6.6); NEUTROPHILS % (AUTO) 80.1 %; PLT - PLATELET COUNT 139 10^3/uL (130-450); RED BLOOD COUNT 4.11 10^6/uL (4.20-5.40); RED CELL DISTRIBUTION WIDTH 18.7 % (12.0-15.0); WHITE BLOOD COUNT 11.4 x10^3/uL (4.8-10.8)
[2019-12-29 10:15] LABS: ALBUMIN 2.4 g/dL (3.2-5.5); ALBUMIN/GLOBULIN RATIO 0.8 (1.0-2.2); BILIRUBIN,TOTAL 0.5 mg/dL (0.2-1.0); CALCIUM 6.1 mg/dL (8.5-10.3); CREATININE 0.7 mg/dL (0.4-1.0); TOTAL PROTEIN 5.4 g/dL (6.7-8.2)
[2019-12-29 10:59] LABS: VBG PH 7.43 (7.31-7.41)
[2019-12-29] MEDS ORDERED: CALCIUM GLUCONATE 1,000 MG in SODIUM CHLORIDE 0.9% 50 ML IV SCH (11:45)
[2019-12-29 18:05] LABS: VBG PH 7.451 (7.31-7.41)
[2019-12-29 18:07] LABS: BASOPHILS % (AUTO) 0.2 %; EOSINOPHILS % (AUTO) 0.1 %; HGB - HEMOGLOBIN 10.4 g/dL (12.0-16.0); LYMPHOCYTES % (AUTO) 21.3 %; MEAN CORPUSCULAR HEMOGLOBIN 25.8 pg (27.0-31.0); MEAN CORPUSCULAR HGB CONC 32.6 g/dL (32.0-36.0); MEAN CORPUSCULAR VOLUME 79.2 fL (81.0-99.0); MEAN PLATELET VOLUME 12.2 fL (7.9-10.8); MONOCYTES % (AUTO) 3.8 %; NEUTROPHILS % (AUTO) 73.8 %; PLT - PLATELET COUNT 143 10^3/uL (130-450); RED BLOOD COUNT 4.03 10^6/uL (4.20-5.40); RED CELL DISTRIBUTION WIDTH 18.8 % (12.0-15.0); WHITE BLOOD COUNT 9.1 x10^3/uL (4.8-10.8)
[2019-12-29 18:09] LABS: ABNORMAL LYMPHS % (MANUAL) 0 %
[2019-12-29 18:19] LABS: ALBUMIN 2.5 g/dL (3.2-5.5); ALBUMIN/GLOBULIN RATIO 0.8 (1.0-2.2); BILIRUBIN,TOTAL 0.3 mg/dL (0.2-1.0); CREATININE 0.8 mg/dL (0.4-1.0); TOTAL PROTEIN 5.6 g/dL (6.7-8.2)
[2019-12-29 18:21] LABS: CALCIUM 6.5 mg/dL (8.5-10.3)
[2019-12-29 18:24] LABS: BAND NEUTROPHILS % (MANUAL) 2 %; DIFFERENTIAL COMMENT MANUAL DIFFERENTIAL; LYMPHOCYTES % (MANUAL) 22 %; MONOCYTES # (MANUAL) 0.4 10^3/uL (0.0-1.0); PLATELET ESTIMATE, MANUAL NORMAL (130-450,000) (NORMAL); PLATELET MORPHOLOGY NORMAL APPEARANCE (NORMAL)
[2019-12-29] MEDS ORDERED: CALCIUM GLUCONATE 1,000 MG in SODIUM CHLORIDE 0.9% 50 ML IV ONE ×2 (18:27→20:00)
[2019-12-30] MEDS: ACETAMINOPHEN 500 MG TABLET PO SCH ×3 (01:25→16:04)
[2019-12-30] MEDS: LACTATED RINGERS 1,000 ML IV SCH (01:44)
[2019-12-30] MEDS: HYDROCORTISONE 1% CREAM 28 GM TUBE PR PRN (03:40)
[2019-12-30 05:57] LABS: ALBUMIN 2.4 g/dL (3.2-5.5); ALBUMIN/GLOBULIN RATIO 0.8 (1.0-2.2); BILIRUBIN,TOTAL 0.5 mg/dL (0.2-1.0); CALCIUM 6.9 mg/dL (8.5-10.3); CREATININE 0.7 mg/dL (0.4-1.0); TOTAL PROTEIN 5.4 g/dL (6.7-8.2)
[2019-12-30] MEDS: LABETALOL 100 MG TABLET PO SCH ×2 (09:06→21:08)
--- NOTE | 2019-12-30 10:43 | PROVIDER PROGRESS NOTE ---
Subjective - Prog Note Date Prog Note Date: 12/30/19 Prog Note Time: 08:00 - Subjective Subjective: Magnesium was turned off this am. BPs in mild to normal range on labetalol 100 mg po bid. Ca levels low end of normal this am. Has been out of bed once for BM. Cano catheter in place, to be removed this am. Tolerating po. Concerned about volume of breastmilk. No SWAIN/vision change/RUQ pain. Objective - Vital Signs/Intake & Output Vital Signs: Vital Signs x48h Temp Pulse Resp BP Pulse Ox 12/30/19 09:04 60 122/72 12/30/19 07:46 98.8 F 58 L 17 140/90 H 99 12/30/19 05:26 54 L 16 119/75 98 12/30/19 03:38 98.8 F 59 L 18 133/85 H 99 Intake & Output: Intake & Output 12/27/19 12/28/19 12/29/19 12/30/19 23:59 23:59 23:59 23:59 Intake Total 687.5 4106.250 1907.5 Output Total 1200 4300 1625 Balance -512.5 -193.750 282.5 - Objective General Appearance: positive: No acute distress Respiratory: positive: No respiratory distress Cardiovascular: positive: Other (RR) Abdomen: positive: Other (Mildly TTP, soft and ND. FF below umbi) Back: positive: Nml inspection Skin: positive: Color nml, Warm, Dry Extremities: positive: Non-tender, No pedal edema Neurologic/Psychiatric: positive: Oriented x3 - Lab Results Fish Bones: 12/29/19 17:58 12/30/19 05:35 Other Labs: Lab Results x24hrs 12/30/19 12/29/19 12/29/19 Range/Units 05:35 17:58 17:58 WBC (4.8-10.8) x10^3/uL RBC (4.20-5.40) 10^6/uL Hgb (12.0-16.0) g/dL Hct (37.0-47.0) % MCV (81.0-99.0) fL MCH (27.0-31.0) pg MCHC (32.0-36.0) g/dL RDW (12.0-15.0) % Plt Count (130-450) 10^3/uL MPV (7.9-10.8) fL Neut # (Auto) Lymph # (Auto) [place] # (Auto) Eos # (Auto) Baso # (Auto) Absolute Nucleated RBC Total Counted Band Neuts % (Manual) (0 - 10) % Abnorm Lymph % (Manual) % Nucleated RBC % Neutrophils # (Manual) (1.5-6.6) 10^3/uL Lymphocytes # (Manual) (1.5-3.5) 10^3/uL Monocytes # (Manual) (0.0-1.0) 10^3/uL Eosinophils # (Manual) (0-0.7) 10^3/uL Basophils # (Manual) (0-0.1) 10^3/uL Differential Comment Manual Slide Review WBC Morphology (NORMAL) Platelet Estimate (NORMAL) Platelet Morphology (NORMAL) RBC Morph Micro Appear (NORMAL) VBG pH 7.451 H (7.31-7.41) Ionized Calcium 0.91 L (1.15-1.33) mmol/L Sodium 137 139 (135-145) mmol/L Potassium 4.0 4.1 (3.5-5.0) mmol/L Chloride 107 108 (101-111) mmol/L Carbon Dioxide 24 20 L (21-32) mmol/L Anion Gap 6.0 11.0 (6-13) BUN 8 9 (6-20) mg/dL Creatinine 0.7 0.8 (0.4-1.0) mg/dL Estimated GFR (MDRD) 106 91 (>89) Glucose 75 93 (70-100) mg/dL Calcium 6.9 L 6.5 L* (8.5-10.3) mg/dL Total Bilirubin 0.5 0.3 (0.2-1.0) mg/dL AST 29 29 (10-42) IU/L ALT 20 22 (10-60) IU/L Alkaline Phosphatase 157 H 155 H (42-121) IU/L Total Protein 5.4 L 5.6 L (6.7-8.2) g/dL Albumin 2.4 L 2.5 L (3.2-5.5) g/dL Globulin 3.0 3.1 (2.1-4.2) g/dL Albumin/Globulin Ratio 0.8 L 0.8 L (1.0-2.2) 12/29/19 12/29/19 Range/Units 17:58 10:50 WBC 9.1 (4.8-10.8) x10^3/uL RBC 4.03 L (4.20-5.40) 10^6/uL Hgb 10.4 L (12.0-16.0) g/dL Hct 31.9 L (37.0-47.0) % MCV 79.2 L (81.0-99.0) fL MCH 25.8 L (27.0-31.0) pg MCHC 32.6 (32.0-36.0) g/dL RDW 18.8 H (12.0-15.0) % Plt Count 143 (130-450) 10^3/uL MPV 12.2 H (7.9-10.8) fL Neut # (Auto) Not Reportable Lymph # (Auto) Not Reportable [place] # (Auto) Not Reportable Eos # (Auto) Not Reportable Baso # (Auto) Not Reportable Absolute Nucleated RBC Not Reportable Total Counted 100 Band Neuts % (Manual) 2 (0 - 10) % Abnorm Lymph % (Manual) 0 % Nucleated RBC % Not Reportable Neutrophils # (Manual) 6.7 H (1.5-6.6) 10^3/uL Lymphocytes # (Manual) 2.0 (1.5-3.5) 10^3/uL Monocytes # (Manual) 0.4 (0.0-1.0) 10^3/uL Eosinophils # (Manual) 0.0 (0-0.7) 10^3/uL Basophils # (Manual) 0.0 (0-0.1) 10^3/uL Differential Comment MANUAL DIFFERENTIAL Manual Slide Review Indicated WBC Morphology NORMAL APPEARANCE (NORMAL) Platelet Estimate NORMAL (130-450,000) (NORMAL) Platelet Morphology NORMAL APPEARANCE (NORMAL) RBC Morph Micro Appear 1+ MICROCYTOSIS (NORMAL) VBG pH 7.430 H (7.31-7.41) Ionized Calcium 0.89 L (1.15-1.33) mmol/L Sodium (135-145) mmol/L Potassium (3.5-5.0) mmol/L Chloride (101-111) mmol/L Carbon Dioxide (21-32) mmol/L Anion Gap (6-13) BUN (6-20) mg/dL Creatinine (0.4-1.0) mg/dL Estimated GFR (MDRD) (>89) Glucose (70-100) mg/dL Calcium (8.5-10.3) mg/dL Total Bilirubin (0.2-1.0) mg/dL AST (10-42) IU/L ALT (10-60) IU/L Alkaline Phosphatase (42-121) IU/L Total Protein (6.7-8.2) g/dL Albumin (3.2-5.5) g/dL Globulin (2.1-4.2) g/dL Albumin/Globulin Ratio (1.0-2.2) Assessment/Plan - Problem List (1) Preeclampsia Impression: PPD#2 s/p , complicated by pre-eclampsia wiht severe features PRE-E: BPs in normal to mild range on labetalol 100 mg po bid -Mag discontinued -Calcium now in low end of normal range s/p calcium gluconate x2 -Cont labetalol -HEATHER Cano -Has had SCDs in place, not at current PP: Routine pp care -Encourage ambulation this am Will remain in house for 24 hours of observation off magnesium Also to beenfit from support.
[2019-12-30] MEDS ORDERED: CALCIUM CARBONATE CHEW 500 MG TABLET PO SCH (11:00)
[2019-12-30] MEDS: SIMETHICONE CHEW 80 MG TABLET PO PRN ×2 (12:34→16:04)
[2019-12-30] MEDS: DOCUSATE SODIUM 100 MG CAPSULE PO PRN (21:08)
[2019-12-31] MEDS: ACETAMINOPHEN 500 MG TABLET PO SCH ×2 (00:11→15:47)
--- NOTE | 2019-12-31 07:58 | PROVIDER PROGRESS NOTE ---
Subjective - Prog Note Date Prog Note Date: 12/31/19 Prog Note Time: 07:54 - Subjective Subjective: Blood pressures have been in normal to mild range. Heart rate has been steadily below 60. Otherwise, patient is doing well and has ntocomplaints. Introducing formula. Up and ambulating, tolerating po, pain well managed. Lochia wnl. Desires DC to home Objective - Vital Signs/Intake & Output Vital Signs: Vital Signs x48h Temp Pulse Resp BP Pulse Ox 12/31/19 05:00 97.7 F 59 L 15 132/78 H 99 12/31/19 00:11 135/77 H Intake & Output: Intake & Output 12/28/19 12/29/19 12/30/19 12/31/19 23:59 23:59 23:59 23:59 Intake Total 687.5 4106.250 2207.5 Output Total 1200 4300 3201 Balance -512.5 -193.750 -993.5 - Objective General Appearance: positive: No acute distress Respiratory: positive: Chest non-tender, Breath sounds nml Cardiovascular: positive: Regular rate & rhythm Abdomen: positive: Non-tender, Other (soft and non-distended. FF below umbi) Back: positive: Nml inspection Skin: positive: Color nml Extremities: positive: Non-tender, No pedal edema Neurologic/Psychiatric: positive: Oriented x3 - Lab Results Fish Bones: 12/29/19 17:58 12/30/19 05:35 Assessment/Plan - Problem List (1) Preeclampsia Impression: BPs in mild to normal range on labetalol Has HR below 60- discontinuing labetalol and trial short acting nifedipine. -If tolerates nifedipine, then will send home on long acting nifedipine Routine discharge instructions given. (2) Vaginal delivery Impression: Discharging to home pending tolerance of nifedipine Routine DC instructions given Needs to fu within one week for blood pressure check
[2019-12-31] MEDS ORDERED: NIFEdipine 10 MG CAPSULE PO ONE (08:00)
--- NOTE | 2019-12-31 08:06 | Discharge Plan ---
Discharge Plan Problem Reviewed?: Yes Disposition: Home, Self Care Condition: Good Prescriptions: Docusate Sodium 100 - 200 mg PO BID PRN #60 capsule PRN Reason: Constipation NIFEdipine [Nifedipine ER] 30 mg PO DAILY #30 tab.er.24 Acetaminophen [Tylenol Extra Strength] 500 - 1,000 mg PO Q8H PRN #90 tablet PRN Reason: Pain Activity Restrictions: Additional Comments (Nothing in the vagina for 6 weeks: No intercourse, tampons, douching Call for: -Fever greater than 100.5 - Pain that does not improve with pain medication -Heavy bleeding in which you are soaking a pad an hour for 2 hours in a row) Shower Restrictions: Yes Health Concerns: Please call for headaches that do not improve with pain medicine, sparkly lights or black spots in your field of vision, or cyst pain in the right upper corner of your abdomen. Plan of Treatment: Acetaminophen 500-1000 mg by mouth every 8 hours as needed for pain Docusate 100-200 mg by mouth twice a day as needed for constipation Nifedipine XL 30 mg po daily (for blood pressure) No Smoking: If you smoke, Please STOP! Call for help. Follow-up with: Oriana Edmondson ARNP [Provider Admit Priv/Credential] -
[2019-12-31] MEDS: DOCUSATE SODIUM 100 MG CAPSULE PO PRN (11:51)
[2019-12-31 16:36] VITALS: BP 142/77
[2019-12-31] MEDS ORDERED: NIFEdipine ER 30 MG TABLET PO SCH (17:50)
--- NOTE | 2019-12-31 18:44 | Labor Flowsheet ---
Labor Flowsheet Datetime Report Generated by CPN: 12/31/2019 18:43 Datetime: 12/31/2019 16:35 VITAL SIGNS NBP Sys/Saira/Mean (mmHg): 142 : 77 : 92 Pulse: 53 Datetime: 12/31/2019 10:04 SpO2 (%): 99 Datetime: 12/30/2019 12:00 Stage of : Datetime: 12/29/2019 01:00 PAIN Pain Scale: 0 Datetime: 12/28/2019 23:40 MEDICATIONS Pitocin (milliunits): verbal orders received to hang a second post pitocin bag once first ba g infusion complete. Datetime: 12/28/2019 23:15 ANESTHESIA Anesthesia Plans: repair complete. uterine bleeding well managed. epidural off and catheter removed intact. Datetime: 12/28/2019 23:00 Respirations: 20 Datetime: 12/28/2019 22:51 UTERINE ACTIVITY Monitor Mode: External Frequency (min): 3-3.5 Quality: Moderate Pattern: Normal: <= 5 Contractions in 10 Minutes Contraction Comments: pushes to delivery ASSESSMENT A Monitor Mode: External US FHR Baseline Rate : 130 (Annotations: FHT dopple) Variability: Moderate 6-25 bpm Accelerations: None Decelerations: Variable; Prolonged Category: Category II Datetime: 12/28/2019 22:48 Comments: vacuum Station: 2 Datetime: 12/28/2019 22:47 Patient Care Comments: o2 on Communication Comments: patient gives verbal consent for vaccuum placement Datetime: 12/28/2019 22:45 Resting Tone (Palpate): Relaxed Datetime: 12/28/2019 22:44 Medication Comments: IVP increased Datetime: 12/28/2019 22:32 COMMUNICATION Communication: Call/Page Placed to Provider Datetime: 12/28/2019 22:25 LaborFlag: Labor Datetime: 12/28/2019 22:15 Duration (sec): 80-100 Datetime: 12/28/2019 22:10 STAGE 2 Stage 2 Comments: Active pushing begins with provider at perineum Datetime: 12/28/2019 22:05 VAGINAL EXAM Dilatation (cm): 10.0 Datetime: 12/28/2019 21:45 Monitor Interventions for FHR: FSE Applied; FSE Number @ 1 Datetime: 12/28/2019 21:38 Exam by: KSondra Dawn, RNC Vaginal Exam Comments: assisting RN called MD to update on SVE. Datetime: 12/28/2019 21:34 Epidural Procedure: Completed Epidural Procedure Other: Pump Started Datetime: 12/28/2019 21:00 Anesthesia Comments: 500 cc IV fluid bolus infused Datetime: 12/28/2019 20:50 Pain Relief Measures: Pain Medication Given Analgesics/Sedatives: Fentanyl (mcg) @ 50 Datetime: 12/28/2019 20:39 Effacement (%): 100 Membrane Status: Ruptured Datetime: 12/28/2019 20:32 Membranes Ruptured Date/Time: 12/28/2019 20:32 Membranes Rupture Method: Spontaneous Amniotic Fluid Color: Clear Amniotic Fluid Amount: Small Amniotic Fluid Odor: Normal Vaginal Bleeding: Normal Show Datetime: 12/28/2019 20:22 Temperature (C): 37.1 Datetime: 12/28/2019 20:13 MATERNAL ASSESSMENT Level of Consciousness: Alert Headache: Denies Breath Sounds, Left: Clear and Equal Breath Sounds, Right: Clear and Equal Nausea/Vomiting: Hx of Nausea/Vomiting RUQ Epigastric Pain: Denies Datetime: 12/28/2019 20:10 Antibiotics: Ampicillin IV 1 Gm Antiemetics/Antacids: Zofran (mg) @ 4 Datetime: 12/28/2019 19:27 DTR's/Clonus: DTRs 2+ Datetime: 12/28/2019 19:16 Monitor Interventions for UA: [place] Adjusted Datetime: 12/28/2019 19:03 Cervical Ripening Agents: Cytotec @ 50 Datetime: 12/28/2019 19:00 FHR Baseline Changes: No Baseline Change Datetime: 12/28/2019 18:48 PATIENT CARE Provider Reviewed Strip: Yes Provider Notified (Name): McSorley Datetime: 12/28/2019 16:41 Cervix, Consistency: Soft Cervix, Position: Posterior Datetime: 12/28/2019 16:00 Actions for Decelerations: Side to Side
--- NOTE | 2020-01-04 12:43 | DISCHARGE SUMMARY ---
"Discharge Summary Discharge Date: 01/02/20 Condition at Discharge: Good Discharge Disposition: 01 Home, Self Care - DIAGNOSES Admission Diagnoses: IUP at 39+6 weeks estimated gestational age LABOR Severe range blood pressures Discharge Diagnoses with Status of Each Condition: Same and delivery of term gestation Pre-eclampsia - HPI History of Present Illness: Patient is a 19-year-old G1, P0 at 39+6 weeks estimated gestational age who presented with painful contractions and found to have severe range blood pressures. - CONSULTS | PROCEDURES Procedures: Vacuum assisted vaginal delivery for distress - HOSPITAL COURSE Hospital Course: STAGE I: Patient is a 19-year-old G1, P0 admitted at 39 weeks +6 days estimated gestational age in early labor. Patient presented with contractions. Initial SVE was 2/complete/-2 station. Upon admission she was noted to have several blood pressures in severe range. Urine protein creatinine ratio was 0.3, consistent with preeclampsia. She was admitted for labor and management of preeclampsia with severe features. She was started on magnesium with a 4 g IV bolus followed with a 2 g/h infusion.Initial severe range blood pressures were managed with oral nifedipine 10 mg x 1. Later on in the labor course she was started on labetalol 100 mg p.o. twice daily.Overall PIH labs were within normal limits and patient denied PIH symptoms.She was managed expectantly until her labor course stalled out and she was given a single dose of misoprostol 50 mcg x 1.She continued to contract spontaneously and cervical dilation advanced.She underwent spontaneous rupture of membranes notable for passage of clear fluid.Epidural for pain management.She was GBS positive and received adequate treatment with ampicillin for GBS prophylaxis.She was noted to be at compete cervical dialtion at 22:05. Cat I tracing throughout Stage I labor. STAGE II: Patient pushed well for 30 minutes to deliver a viable female with Apgars of 7/9. Contractions were spaced widely and second stage pitocin was given, reaching a max dose of 3 mU/min. tracing showed recurrent deep decelerations to the 50s in the setting of slow descent. Patient was offered a vacuum extraction and she declined. As pushing continued, decelerations became more prolonged and patient was again offered vacuum extraction. At this time, she agreed. Vacuum was placed at 22:48. Head delivered at 22:50 and vacuum was removed. head was extracted with one rib puller one contraction, no pop offs. Head was delivered and shoulder dystocia lasting one minute in total was relieved with delivery of the posterior arm. was delivered to maternal chest and was vigorous at delivery. Cord was clamped x2 and cut after cord pulsations had ceased. Pediatrics was present shortly after delivery and assessed infant. Cord gases had been collected but were not sent given vigorousness of . STAGE III: Placenta delivered with expression at 22:57. It was examined and found to be intact. Perineum was examined and had two 1st degree lacerations, one in the right labia and one in the left ML sulcus. Bother were repaired using 3-0 Vicryl in the usual sterile fashion. Bleeding after delivery was brisk. Uterine tone was achieved with bimanual massage, pitocin bolus, and misoprostol 600 mcg BC x1. Total EBL was 200. Procedure was well tolerated. : She received IV magnesium sulfate infusion for 24 hours postdelivery. Electrolytes were checked and she was found to have critically low calcium levels. She was given 2g IV calcium gluconate in split doses, checking ionized calcium levels in between. Blood pressures had been well controlled on labetalol 100 mg po bid. She developed bradycardia. EKG showed sinus bradycardia. She was switched to nifedipine 10 mg po x1 and then nifedipine XL 30 mg po daily once tolerance was demonstrated. BPs were in normal to mild range in the period. She was discharged to home. - ALLERGIES Allergies/Adverse Reactions: Allergies Allergy/AdvReac Type Severity Reaction Status Date / Time No Known Drug Allergies Allergy Verified 12/28/19 15:49 - MEDICATIONS Home Medications: Ambulatory Orders Medication Instructions Recorded Confirmed Acetaminophen [Tylenol Extra 500 - 1,000 mg PO Q8H PRN #90 12/31/19 Strength] tablet Docusate Sodium 100 - 200 mg PO BID PRN #60 capsule 12/31/19 NIFEdipine [Nifedipine ER] 30 mg PO DAILY #30 tab.er.24 12/31/19 - LABS Result Diagrams: 12/29/19 17:58 12/30/19 05:35 - FOLLOW UP Follow Up: One week for BP check - TIME SPENT Time Spent in Discharge (Minutes): 30"
== END 2019-12-31 18:40 | disposition home or self-care (01) | DRG 807 ==
LOC: WFO 14:24 → FBP 14:26 → WFO 15:00 → FBP 15:01
PROVIDERS: ADMIT Obstetrics & Gynecology; ATTEND Obstetrics & Gynecology
PROC: 10D07Z6 Extraction of Products of Conception, Vacuum, Via Natural or Artificial Opening (ICD-10-PCS; principal; 2019-12-28)
PROC: 0HQ9XZZ Repair Perineum Skin, External Approach (ICD-10-PCS; 2019-12-28)
DX: O14.14 Severe pre-eclampsia complicating childbirth (principal); Z37.0 Single live birth; O70.0 First degree perineal laceration during delivery; O24.429 Gestational diabetes mellitus in childbirth, unspecified control; O66.0 Obstructed labor due to shoulder dystocia; Z3A.39 39 weeks gestation of pregnancy; O76 Abnormality in fetal heart rate and rhythm complicating labor and delivery; O99.824 Streptococcus B carrier state complicating childbirth; O99.89 Other specified diseases and conditions complicating pregnancy, childbirth and the puerperium; R00.1 Bradycardia, unspecified
CPT/HCPCS: 36415; 80053; 82330; 82570; 84156; 85025; 86850; 86900; 86901; 93005; 99213; A9270; J7040; J7120; Q0162

== ENCOUNTER 2020-01-10 11:55 | Outpatient (CLI) | payer MEDICAID ==
[2020-01-10 12:39] LABS: BASOPHILS % (AUTO) 0.5 %; EOSINOPHILS # (AUTO) 0.1 10^3/uL (0.0-0.7); EOSINOPHILS % (AUTO) 1.1 %; HGB - HEMOGLOBIN 11.7 g/dL (12.0-16.0); LYMPHOCYTES # (AUTO) 1.5 10^3/uL (1.5-3.5); LYMPHOCYTES % (AUTO) 24.1 %; MEAN CORPUSCULAR HEMOGLOBIN 26.1 pg (27.0-31.0); MEAN CORPUSCULAR HGB CONC 31.4 g/dL (32.0-36.0); MEAN CORPUSCULAR VOLUME 83.1 fL (81.0-99.0); MEAN PLATELET VOLUME 9.8 fL (7.9-10.8); MONOCYTES # (AUTO) 0.3 10^3/uL (0.0-1.0); MONOCYTES % (AUTO) 4.1 %; NEUTROPHILS # (AUTO) 4.3 10^3/uL (1.5-6.6); NEUTROPHILS % (AUTO) 69.7 %; PLT - PLATELET COUNT 348 10^3/uL (130-450); RED BLOOD COUNT 4.49 10^6/uL (4.20-5.40); RED CELL DISTRIBUTION WIDTH 20.5 % (12.0-15.0); WHITE BLOOD COUNT 6.1 x10^3/uL (4.8-10.8)
[2020-01-10 12:51] LABS: CREATININE 0.7 mg/dL (0.4-1.0); URIC ACID 6.3 mg/dL (2.6-7.2)
[2020-01-10] MEDS ORDERED: ACETAMINOPHEN 500 MG TABLET PO PRN (13:02)
[2020-01-10] MEDS ORDERED: SUMAtriptan 25 MG TABLET PO PRN (13:02)
[2020-01-10] MEDS ORDERED: KETOROLAC 15 MG/ML VIAL IVP PRN (13:03)
--- NOTE | 2020-01-10 13:13 | HISTORY & PHYSICAL EXAMINATION ---
Chief Complaint - Chief Complaint Chief Complaint: Headaches for a couple days and elevated blood pressure in clinic History of Present Illness - Admitted From Admitted From:: Outpatient Clinic - History of Present Illness HPI Comment/Other: Rashmi presents today at 13 days following a routine visit where her blood pressures were found to be elevated. She reports an intermittent headache over the last two days, which she rates as moderate to severe, with only mild relief from tylenol. She is sensitive to sound during these episodes. Her headache today is 4/10, mostly in the front. She reports some right sided throbbing that occasionally accompanies her headache. She also endorses some ongoing blurry vision since , without spots, tunneling, or loss of vision. History - Past Medical History Cardiovascular: reports: None Respiratory: reports: None Neuro: reports: None Endocrine/Autoimmune: reports: None GI: reports: None CANE PUSHER: reports: Other ( 12/28/2019 with hypertension) : reports: None HEENT: reports: None Psych: reports: None Musculoskeletal: reports: None Derm: reports: None MRSA Hx?: No - Family & Social History Family History: Mother: Hypertension Living arrangement: At home Living Situation: With spouse/s.o. - Substance History Use: Uses substance without health or social issues: NONE Abuse: Recurrent use of substance despite neg consequences: NONE Dependence: Experiences withdrawal or developed tolerances: NONE - POLST Patient has POLST: No POLST Status: Full Code Meds/Allgy - Home Medications Home Medications: Ambulatory Orders Medication Instructions Recorded Confirmed Acetaminophen [Tylenol Extra 500 - 1,000 mg PO Q8H PRN #90 12/31/19 Strength] tablet Docusate Sodium 100 - 200 mg PO BID PRN #60 capsule 12/31/19 NIFEdipine [Nifedipine ER] 30 mg PO DAILY #30 tab.er.24 12/31/19 - Allergies Allergies/Adverse Reactions: Allergies Allergy/AdvReac Type Severity Reaction Status Date / Time No Known Drug Allergies Allergy Verified 12/28/19 15:49 Review of Systems - Constitutional Constitutional: reports: Fatigue - Eyes Eyes: reports: Blurred vision - Neurological Neurological: reports: Headache - All Other Systems All Other Systems: reports: Reviewed and negative Exam - Vital Signs Reviewed Vital Signs: Yes Vital Signs: Vital Signs x48h Temp Pulse Pulse Resp BP BP Pulse Ox 01/10/20 13:00 134/88 H 01/10/20 12:45 63 152/96 H 01/10/20 12:26 125/80 01/10/20 12:11 127/72 01/10/20 12:09 37.2 C 61 16 131/84 H 01/10/20 11:56 37.2 C 61 16 131/84 H 99 - Physical Exam General Appearance: positive: No acute distress Eyes Bilateral: positive: Normal inspection Neck: positive: Nml inspection Respiratory: positive: Chest non-tender, Breath sounds nml Cardiovascular: positive: Regular rate & rhythm, No murmur, No gallop Peripheral Pulses: positive: 2+ Abdomen: positive: Non-tender Skin: positive: Color nml, No rash, Warm, Dry Extremities: positive: Non-tender, Full ROM Neurologic/Psychiatric: positive: Oriented x3 Reflexes: Knee (R): 1+, Knee (L): 1+ Conclusion/Plan - Lab Results Fish Bones: 01/10/20 12:30 01/10/20 12:30 - Other Other Results/Comments: H/H: 11.7/37.3 Plt: 348 AST: 26 ALT: 32 Creat: 0.7 Prot:Creat: 0.1 Plan: Monitor Blood Pressures q15min- notify provider for any pressures out of range IV access established Administer Tylenol, Ketorlac, and Imitrex to alleviate pain and assist to distinguish between SWAIN causes Strict I/O This plan has been formulated with the consult of Isabela FRANCIS.
[2020-01-10 13:22] LABS: CREATININE,URINE 95.1 mg/dL; PROTEIN/CREATININE RATIO,URINE 0.1 (<=0.2)
[2020-01-10 16:33] VITALS: BP 122/74
--- NOTE | 2020-01-10 21:18 | PROVIDER PROGRESS NOTE ---
Subjective - Prog Note Date Prog Note Date: 01/10/20 Prog Note Time: 17:00 - Subjective Pt reports feeling: Improved Subjective: Final Progress Note S: Rashmi reports that her headache is resolved. She denies further concerns. O: Last BP 122/74- no severe range pressures (one diastolic was 111, but was retaken in short order by the RN and was significantly reduced) Headache resolved Heart rate in 40s A: Possible migraine headache, resolved with PO and IV medications VSS Labs- wnl Heart rate remains low to pt's baseline P: Discharge to home Continue current home meds, including nifedipine 30mg PO daily Take BP daily and report out of range pressures Follow up for visit in one week to review pressures Call or present for signs of preeclampsia or low heart rate Objective - Vital Signs/Intake & Output Vital Signs: Vital Signs x48h Pulse BP 01/10/20 16:30 122/74 01/10/20 16:15 45 L 112/72 01/10/20 16:00 107/62 01/10/20 15:45 46 L 103/76 01/10/20 15:30 109/65 01/10/20 15:28 44 L 107/71 01/10/20 15:00 49 L 115/72 01/10/20 14:45 49 L 120/72 01/10/20 14:30 128/79 01/10/20 14:25 126/78 01/10/20 14:00 143/85 H 01/10/20 13:45 134/82 H 01/10/20 13:36 138/79 H Intake & Output: Intake & Output 01/07/20 01/08/20 01/09/20 01/10/20 23:59 23:59 23:59 23:59 Output Total 150 Balance -150 - Lab Results Fish Bones: 01/10/20 12:30 01/10/20 12:30 Other Labs: Lab Results x24hrs 01/10/20 01/10/20 01/10/20 Range/Units 13:05 12:30 12:30 WBC 6.1 (4.8-10.8) x10^3/uL RBC 4.49 (4.20-5.40) 10^6/uL Hgb 11.7 L (12.0-16.0) g/dL Hct 37.3 (37.0-47.0) % MCV 83.1 (81.0-99.0) fL MCH 26.1 L (27.0-31.0) pg MCHC 31.4 L (32.0-36.0) g/dL RDW 20.5 H (12.0-15.0) % Plt Count 348 (130-450) 10^3/uL MPV 9.8 (7.9-10.8) fL Neut # (Auto) 4.3 (1.5-6.6) 10^3/uL Lymph # (Auto) 1.5 (1.5-3.5) 10^3/uL [place] # (Auto) 0.3 (0.0-1.0) 10^3/uL Eos # (Auto) 0.1 (0.0-0.7) 10^3/uL Baso # (Auto) 0.0 (0.0-0.1) 10^3/uL Absolute Nucleated RBC 0.00 x10^3/uL Nucleated RBC % 0.0 /100WBC Creatinine 0.7 (0.4-1.0) mg/dL Estimated GFR (MDRD) 106 (>89) Uric Acid 6.3 (2.6-7.2) mg/dL AST 26 (10-42) IU/L ALT 32 (10-60) IU/L Urine Creatinine 95.1 mg/dL Ur Total Protein Timed 10 mg/dL Protein/Creatinin Ratio 0.1 (<=0.2)
== END 2020-01-10 17:13 | disposition home or self-care (01) ==
LOC: WFO 11:55 → FBP 11:58 → WFO 17:13
PROVIDERS: ATTEND Advanced Practice Midwife
DX: O16.5 Unspecified maternal hypertension, complicating the puerperium (principal); O90.89 Other complications of the puerperium, not elsewhere classified; R51.9 Headache, unspecified
CPT/HCPCS: 36415; 82565; 82570; 84156; 84450; 84460; 84550; 85025; 96374; A9270; 99215

== ENCOUNTER 2020-10-04 22:05 | Emergency (ER) | payer SELFPAY ==
[2020-10-04 22:15] VITALS: BP 135/87
--- NOTE | 2020-10-04 22:17 | ED Physician Documentation ---
PD HPI UPPER EXT INJURY - Stated complaint Stated Complaint: DOG BITE - Chief complaint Chief Complaint: Laceration - History obtained from History obtained from: Patient - History of Present Illness Location: Right, Arm Type of injury: Other (went into neighbors house and their 2 dogs started to bit her, one on right upper arm, then right gluteal and the other bit her left gl uteal.) Where injury occurred: Other (neighbors house.) Timing - onset: How many hours ago (1), Today Timing - details: Abrupt onset, Still present Worsened by: Moving, Palpating Associated symptoms: No: Weakness, Numbness Contributing factors: Other (had not reported to police as yet.) Similar symptoms before: Has not had sx before Review of Systems Constitutional: denies: Fever, Chills Nose: denies: Rhinorrhea / runny nose, Congestion Throat: denies: Sore throat Respiratory: denies: Cough Neurologic: denies: Focal weakness, Numbness PD PAST MEDICAL HISTORY - Past Medical History Past Medical History: No - Present Medications Home Medications: Ambulatory Orders Medication Instructions Recorded Confirmed Amox/Clav 875/125 [Augmentin] 1 each PO Q12H #6 tablet 10/04/20 - Allergies Allergies/Adverse Reactions: Allergies Allergy/AdvReac Type Severity Reaction Status Date / Time No Known Drug Allergies Allergy Verified 10/04/20 22:15 PD ED PE NORMAL - Vitals Vital signs reviewed: Yes - General General: Alert and oriented X 3, No acute distress, Well developed/nourished - Derm Derm: Normal color, Warm and dry - Extremities Extremities: Other (right upper arm triceps area with red jackson rounded pattern c/w bite but no skin breakage. Both gluteal areas with small bites/punctures just minimally full thickness. No FBs and no active bleeding. ) - Neuro Neuro: No motor deficit, No sensory deficit Results - Vitals Vitals: Vital Signs - 24 hr 10/04/20 22:11 Temperature 37.5 C Heart Rate 84 Respiratory 18 Rate Blood Pressure 135/87 H O2 Saturation 100 Oxygen O2 Source Room air PD MEDICAL DECISION MAKING - ED course Complexity details: considered differential (unbroken skin with soft tissue swelling right upper arm. Red jackson c/w bite. Both gluteal areas with superficial punctures, no deep lacs nor FBs. ), d/w patient ED course: Animal [employer] notified by nursing. Departure - Departure Disposition: 01 Home, Self Care Clinical Impression: Dog bite Qualifiers: Encounter type: initial encounter Qualified Code(s): W54.0XXA - Bitten by dog, initial encounter Condition: Stable Instructions: ED Bite Dog Prescriptions: Amox/Clav 875/125 [Augmentin] 1 each PO Q12H #6 tablet Comments: Augmentin antibiotic twice daily to reduce the chance of infection developing. Cleanse the wounds with soap and water and apply a little ointment once or twice daily. Recheck if signs of infection. Tylenol or ibuprofen as needed for pains. Follow-up with animal control; than nurse here in the ER did call to report this. Discharge Date/Time: 10/04/20 23:16
[2020-10-04] MEDS ORDERED: ACETAMINOPHEN 325 MG TABLET PO STA (22:31)
[2020-10-04] MEDS ORDERED: IBUPROFEN 600 MG TABLET PO STA (22:31)
[2020-10-04] MEDS ORDERED: AMOX/CLAV 875 MG/125 MG TABLET PO STA (22:31)
== END 2020-10-04 23:16 | disposition home or self-care (01) ==
LOC: EDBD → ED 22:05 → MERGE 22:05 → ED 23:16
DX: S40.871A Other superficial bite of right upper arm, initial encounter (principal); S30.870A Other superficial bite of lower back and pelvis, initial encounter; W54.0XXA Bitten by dog, initial encounter; Y92.009 Unspecified place in unspecified non-institutional (private) residence as the place of occurrence of the external cause
CPT/HCPCS: 99282; A9270